=== PATIENT | male | born 1950 ===

== ENCOUNTER 2016-08-15 12:39 | Observation (INO) ==
[2016-08-15] MEDS ORDERED: CLINDAMYCIN INJ 600 MG in PREMIX 1 EACH IV STA (13:28)
[2016-08-15] MEDS ORDERED: SODIUM CHLORIDE 0.9% 1,000 ML IV STA (13:28)
--- NOTE | 2016-08-15 13:34 | Emergency Department Note ---
John Pena Gwan, am scribing for, and in the presence of, Romel Jean MD 13 :19. Ted Pena Charles R, MD, personally performed the services described in this documentation, ascribed by Yovana Lopez in my presence, and it is both accurate and complete [id number] . Arrival - Arrival Chief Complaint: Non-Specific Stated Complaint: TRANSFER [facility] HYPERGLYCEMIA ED Nursing Triage Note: PT TRANSFERRED FROM [facility] FOR EVALUATION OF ELEVATED GLUCOSE WITH SERUM KETONES. PT PRESENTED INITALLY TO DENTAL CLINIC- GIVEN ROCEPHIN AND SENT TO ER FOR ELEVATED GLUCOSE AND HTN. PT HAD ALLERGIC REACTION TO ROCEPHIN AND THEN GIVEN BENADRYL. Mode of Arrival: Stretcher Limitations: No Limitations Source: Patient, Old Records Reviewed, RN Notes Reviewed Time Seen by Provider: 08/15/16 13:06 - History of Present Illness HPI Narrative: Pt is 66 y/o male who presents to the ED for further evaluation of elevated BS with serum ketones with an onset today. Patient stated that he was at dentist office at [facility] for an abscess on lower tooth and upon evaluation, pt ws instructed to report to ED due to elevated BS and HTN. Nurses note that pt was given Rocephin and received an allergic reaction. 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 Patient confirmed that he tooth began to bother him this past weekend and that he ran out of his DM medication 04/2016. No other problems/complaints reported in ED. Onset (ago): day(s) Consistency: constant Severity: severe Allergies/Adverse Reactions: Allergies Allergy/AdvReac Type Severity Reaction Status Date / Time ceftriaxone [From Rocephin] Allergy RASH Verified 08/15/16 12:56 ibuprofen [From Motrin] Allergy RASH Verified 08/15/16 12:56 Review of System - Review of System 12 point system: reviewed and no additional remarkable complaints except as stated - Review of System Constitutional: Present: as per HPI, other (elevated blood sugar) Additional ROS comments: Bottom tooth pain with abscess. Medical,Surgical,& Family Hx - Medical History Cardio: History of: Hypertension Endocrine: History of: Diabetes Mellitus (NIDDM), Thyroid Disorder Other: History of: MRSA - Social History Smoking Status: Current every day smoker Frequency of Alcohol Use: None Type of Drug Use: None Exam Vital Signs: Vital Signs Temperature 97.4 F L 01/03/17 12:39 Pulse Rate 61 08/15/16 12:39 Respiratory Rate 16 08/15/16 12:39 Blood Pressure 189/91 08/15/16 12:39 O2 Sat by Pulse Oximetry 99 08/15/16 12:39 - General General appearance: alert, in no apparent distress - Head Head exam: Present: atraumatic, normocephalic - Eye Eye exam: Present: normal appearance, PERRL, EOMI - ENT ENT exam: Present: normal exam, normal oropharynx, mucous membranes moist, TM's normal bilaterally, normal external ear exam - Expanded ENT Exam Teeth exam: Present: dental caries (Several dental caries), other (Abscess front lower tooth; excessive tooth decay) - Neck Neck exam: Present: full ROM, trachea midline. Absent: tenderness, meningismus , lymphadenopathy, thyromegaly - Chest Chest inspection: Present: symmetric chest wall rise. Absent: tenderness - Respiratory Respiratory exam: Present: normal lung sounds bilaterally. Absent: respiratory distress - Cardiovascular Cardiovascular exam: Present: regular rate, normal rhythm, normal heart sounds. Absent: murmur, rubs, gallop - Abdominal Exam Abdominal exam: Present: soft, normal bowel sounds. Absent: distention, tenderness, guarding, rebound - Extremities Exam Extremities exam: Present: full ROM. Absent: tenderness, pedal edema, calf tenderness - Back Exam Back exam: Present: full ROM. Absent: tenderness - Neurological Exam Neurological exam: Present: alert, oriented X3, CN II-XII intact. Absent: motor sensory deficit - Psychiatric Psychiatric exam: Present: normal affect, normal mood - Skin Skin exam: Present: warm, dry, intact, normal color Course - Consultations Consultation #1: Hospitalist will admit patient Time: 13:34 Results - Labs Lab Results: I have reviewed the patients labs Labs: I reviewed all previous labs from [facility] Critical Care Time Critical Care Time: Yes Total Critical Care Time: 60 Disposition Clinical Impression: Dental abscess, Hyperglycemia due to type 2 diabetes mellitus, Medical non- compliance Case discussed with: patient Disposition: Still a Patient Condition: Guarded Time of Disposition: 13:35
[2016-08-15] MEDS ORDERED: MORPHINE 2 MG/1 ML SYRINGE IV PRN (13:37)
[2016-08-15] MEDS ORDERED: DEXTROSE 50% 25 GM/50 ML VIAL IV PRN (13:37)
[2016-08-15] MEDS ORDERED: ACETAMINOPHEN 325 MG TABLET PO PRN (13:37)
[2016-08-15] MEDS ORDERED: GLUCAGON 1 MG VIAL IM PRN (13:37)
[2016-08-15 13:57] LABS: Basophils % 0.2 % (0.0-0.8); Eosinophils # 0.1 10*3/uL (0.0-0.87); Hematocrit 42.6 VOL% (42.0-52.0); Hemoglobin 14.5 GM/DL (14.0-18.0); Immature Granulocytes % 0.2 %; Immature Granulocytes Absolute 0.02 #; Lymphocytes # 2.1 10*3/uL (1.4-4.0); Lymphocytes % 24.8 % (21.2-54.2); Mean Corpuscular Hemoglobin 32 PG (27-34); Mean Corpuscular Volume 93.4 FL (87-102); Mean Platelet Volume 9.8 FL (9.6-12.0); Monocytes # 0.5 10*3/uL (0.11-0.8); Monocytes % 5.7 % (1.7-12.7); Neutrophils # 5.8 10*3/uL (1.4-7.4); Neutrophils % 68.1 % (38.7-73.9); Platelet Count 192 10*3/uL (130-400); Red Blood Count 4.56 10*6/uL (3.8-5.5); Red Cell Distribution Width 12.8 % (9.3-17.3); White Blood Count 8.6 10*3/uL (4.5-13.71)
[2016-08-15 13:58] LABS: Apearance,Urine CLEAR (Clear); Bilirubin,Urine Negative (Negative); Blood, Urine Negative (Negative); Glucose,Urine (UA) >=500 mg/dL (Negative); Ketones,Urine 80 mg/dL (Negative); Nitrite,Urine Negative (Negative); Protein,Urine Negative; RBC,Urine <1 /HPF (0-4); Urine Color Straw (Yellow); Urine Specific Gravity 1.025 (1.001-1.035); Urine Urobilinogen < 2.0 EU/DL (0.2-1.0); WBC,Urine <1 /HPF (0-6)
--- NOTE | 2016-08-15 13:58 | EKG Report ---
Stationary ECG Study [facility] ER Test Date: 08/15/2016 1:56:40 PM Pat Name: JESSENIA HARTMAN Department: Room: 440 Gender: M Physical Integration Practitioner: CHAD : 1950 Requested by: Romel May Order Number: [id number] Reading MD: CASSIDY TA Intervals [place] Rate: 51 P: 48 AK: 194 QRS: -22 QRSD: 129 T: -40 QT: 459 QTc: 435 Interpretive Statements SINUS BRADYCARDIA BORDERLINE LEFT AXIS DEVIATION MODERATE INTRAVENTRICULAR CONDUCTION DELAY NONSPECIFIC T-WAVE ABNORMALITY Electronically Signed On 08-15-16 17:31:37 FIELD MARKETING ASSOCIATE by CASSIDY TA [email or web address]
[2016-08-15] MEDS ORDERED: ENOXAPARIN 40 MG/0.4 ML SYRINGE SUBCUT SCH (14:00)
[2016-08-15] MEDS ORDERED: SODIUM CHLORIDE 0.9% 1,000 ML IV SCH (14:00)
--- NOTE | 2016-08-15 14:02 | XRay Report ---
Referring Physician: Romel Jean Exam: XR chest 1V portable Date: August 15, 2016 at 1:31 PM Reason: Hyperglycemia Comparison: None Findings: The cardiac silhouette is normal in size. There is minimal atelectasis at the left lung base and possibly at the right lung base. No pneumothorax or pleural fluid is identified. No pneumothorax or pleural fluid is identified. No acute osseous process is seen. Impression: There is minimal atelectasis at the left lung base and possibly at the right lung base. PROCEDURE INTERPRETED AT [facility] DEPARTMENT OF RADIOLOGY Final Report Signed by: Dr. Angie Gallo
[2016-08-15] MEDS ORDERED: CLINDAMYCIN 600 MG/4 ML VIAL ONE (14:12)
[2016-08-15 14:37] LABS: Albumin 3.8 G/DL (3.4-5.0); Bilirubin,Total 0.6 MG/DL (0.2-1.0); Calcium 8.7 MG/DL (8.5-10.1); Potassium 4.4 MMOL/L (3.5-5.1); Total Protein 7.2 G/DL (6.4-8.3)
[2016-08-15 14:38] LABS: Troponin I Only 0.032 NG/ML (0.00-0.045)
--- NOTE | 2016-08-15 15:14 | Hospitalist History & Physical ---
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 Duarte Current Visit: Yes History of Present Illness Chief complaint: infected tooth, hyperglycemia, hypertension History of present illness: Mr. Roth is a 66 year old male who was transferred from [facility] for hyperglycemia. He states he went to [facility] to see about his infected tooth. His right lower molar is infected and painful. He was found there to be hyperglycemic and hypertensive. He states he has not taken his HTN or DM meds since April. He denies other medical history. Denies surgical history. Does smoke about 4 cigarettes a day. Stopped drinking three years ago. Denies drug use. t present, pt denies chest pain, shortness of breath, fever, chills, headache, abdominal pain, n/v/d, dysuria or edema. He did tell me that he had some vomiting and diarrhea a few days ago but it resolved. No pain or complaint at present. Home Medications Medication Instructions Recorded Confirmed Type Aspirin [Ecotrin] 81 mg PO QAM 08/15/16 08/15/16 History Insulin Detemir [Levemir FlexPen] See Protocol SUBCUT DAILY 08/15/16 08/15/16 History Levothyroxine Tab [Synthroid Tab] 200 mcg PO QAM 08/15/16 08/15/16 History Allergies Allergy/AdvReac Type Severity Reaction Status Date / Time ceftriaxone [From Rocephin] Allergy RASH Verified 08/15/16 12:56 ibuprofen [From Motrin] Allergy RASH Verified 08/15/16 12:56 Medical,Surgical,& Family Hx - Medical History Cardio: History of: Hypertension Endocrine: History of: Diabetes Mellitus (NIDDM), Thyroid Disorder Other: History of: MRSA - Social History Smoking Status: Current every day smoker Frequency of Alcohol Use: None Type of Drug Use: None 12 point system: reviewed and no additional remarkable complaints except as stated Exam - Constitutional General appearance: no acute distress - Head Head exam: Present: normal inspection, normocephalic - Eye Eye exam: Present: EOMI. Absent: scleral icterus Pupils: Present: NATALIYA, normal accommodation - ENT ENT exam: Present: normal exam, other (infected lower right molar) - Neck Neck exam: Present: normal inspection. Absent: lymphadenopathy - Respiratory Respiratory exam: Present: clear to auscultation bilaterally. Absent: wheezes - Cardiovascular Cardiovascular exam: Present: regular rate and rhythm. Absent: tachycardia - GI/Abdominal GI/Abdominal exam: Present: normal bowel sounds, soft. Absent: tenderness - Extremities Exam Extremities exam: Present: normal inspection, full ROM. Absent: edema - Back Exam Back exam: Present: normal inspection. Absent: muscle spasm - Neurological Exam Neurological exam: Present: alert, oriented X3 - Psychiatric Psychiatric exam: Present: normal affect, normal mood - Skin Skin exam: Present: normal color, warm, dry Results - Labs CBC & BMP: 08/15/16 13:42 08/15/16 13:42 Lab Results: I have reviewed the past 24 hour labs
[2016-08-15] MEDS ORDERED: hydrALAZINE 20 MG/1 ML VIAL IV ONE (15:49)
[2016-08-15] MEDS: LISINOPRIL/HCTZ 10-12.5 MG TABLET PO SCH (16:05)
[2016-08-15] MEDS: CLINDAMYCIN 300 MG CAPSULE PO SCH (18:35)
[2016-08-15] MEDS: INSULIN REGULAR 100 UNIT/ML SUBCUT SCH (18:59)
[2016-08-15] MEDS ORDERED: INSULIN GLARGINE 100 UNIT/ML SUBCUT SCH (21:00)
[2016-08-16] MEDS: CLINDAMYCIN 300 MG CAPSULE PO SCH ×2 (00:05→06:17)
[2016-08-16] MEDS: INSULIN REGULAR 100 UNIT/ML SUBCUT SCH ×2 (00:07→06:17)
[2016-08-16 05:23] LABS: Basophils % 0.2 % (0.0-0.8); Eosinophils # 0.2 10*3/uL (0.0-0.87); Eosinophils % 2.5 % (0.00-10.9); Hematocrit 38.4 VOL% (42.0-52.0); Hemoglobin 12.9 GM/DL (14.0-18.0); Immature Granulocytes % 0.2 %; Immature Granulocytes Absolute 0.02 #; Lymphocytes % 34.4 % (21.2-54.2); Mean Corpuscular HGB Conc 33.6 GM/DL (32-36); Mean Corpuscular Hemoglobin 31 PG (27-34); Mean Corpuscular Volume 92.3 FL (87-102); Monocytes # 0.5 10*3/uL (0.11-0.8); Monocytes % 5.7 % (1.7-12.7); Platelet Count 198 10*3/uL (130-400); Red Blood Count 4.16 10*6/uL (3.8-5.5); Red Cell Distribution Width 12.8 % (9.3-17.3); White Blood Count 8.7 10*3/uL (4.5-13.71)
[2016-08-16 05:56] LABS: Calcium 8.1 MG/DL (8.5-10.1); Osmolality,Calculated 292.7 MOS/KG (273-304); Potassium 3.2 MMOL/L (3.5-5.1)
[2016-08-16] MEDS ORDERED: LEVOTHYROXINE 200 MCG TABLET PO SCH (09:00)
[2016-08-16] MEDS ORDERED: ASPIRIN EC 81 MG TABLET PO SCH (09:00)
[2016-08-16] MEDS: LISINOPRIL/HCTZ 10-12.5 MG TABLET PO SCH (09:14)
--- NOTE | 2016-08-16 09:51 | Discharge Summary ---
<Ericka Urena N - Last Filed: 08/16/16 09:51> Hospital Course - Hospital Course Hospital Course: Mr. Roth is a 66 year old male who was admitted on 08/15/16 for hypertension, dental abscess, medical non-compliance, and hyperglycemia. He was started on SSI while inpt and diabetic educators have talked with him this morning. He was started on Lisinopril/HCTZ for his BP after receiving PRN Apresoline in the ER, his BP has been well controlled through the night and this morning. We have discussed medication compliance with him. We have started him on PO Clindymycin for his dental abscess and he will be discharged home on this. He will follow up with [facility]. His labs and vitals are WNL this morning. He denies any chest pain , SOB, or vomiting, stating he had a good night. He is agreeable to discharge and follow up. He can be discharged to home today, please see discharge medication reconciliation for accurate list. Diagnosis - Discharge Diagnosis (1) Hypertension Status: Acute (2) Dental abscess Status: Acute (3) Medical non-compliance Status: Acute (4) Hyperglycemia due to type 2 diabetes mellitus Status: Acute Specialty Discharge - Follow Up or Referrals - Discharge Medications No Action Aspirin [Ecotrin] 81 mg PO QAM Insulin Detemir [Levemir FlexPen] See Protocol SUBCUT DAILY Levothyroxine Tab [Synthroid Tab] 200 mcg PO QAM Discharge Plan - Discharge Data Disposition: Disch To Home/Self Care - Discharge Medications New Clindamycin Cap [Cleocin Cap] 300 mg PO Q6HR #20 capsule Insulin Detemir [Levemir] 20 unit SUBCUT BEDTIME #10 ml Insulin Aspart [NovoLOG] 10 unit SUBCUT TID W/MEALS #10 ml Lisinopril/Hctz 10-12.5 [Prinzide 10-12.5] 1 tablet PO DAILY #30 tablet Continue Aspirin [Ecotrin] 81 mg PO QAM Levothyroxine Tab [Synthroid Tab] 200 mcg PO QAM Discontinued Insulin Detemir [Levemir FlexPen] See Protocol SUBCUT DAILY - Follow Up or Referral - Forms/Instructions Forms: Work/School Release Exam - Constitutional Vitals: Period Temp Pulse Resp BP Sys/[place] Pulse Ox Last 24 Hr 96.3 F-97.5 F 58-67 18-20 131-195/77-106 94-98 Discharge Results Labs on day of discharge: Labs from last 24 hours 08/16/16 08/16/16 08/16/16 06:01 04:35 04:35 WBC 8.7 RBC 4.16 Hgb 12.9 L Hct 38.4 L MCV 92.3 MCH 31 MCHC 33.6 RDW 12.8 Plt Count 198 MPV 10.0 Neut % (Auto) 57.0 Lymph % (Auto) 34.4 Collin % (Auto) 5.7 Eos % (Auto) 2.5 Baso % (Auto) 0.2 Neut # (Auto) 5.0 Lymph # (Auto) 3.0 Collin # (Auto) 0.5 Eos # (Auto) 0.2 Baso # (Auto) 0.0 Immature Gran % 0.2 Nucleated RBC % 0.0 Immature Gran # 0.02 Nucleated RBCs # 0.00 Sodium 145 Potassium 3.2 L Chloride 109 H Carbon Dioxide 23 Anion Gap 16.2 H BUN 15 Creatinine 0.80 GFR Calculation 105 BUN/Creatinine Ratio 18.00 Glucose 178 H POC Glucose 168 H Hemoglobin A1c Calculated Osmolality 292.7 Calcium 8.1 L Magnesium Total Bilirubin AST ALT Alkaline Phosphatase Total Creatine Kinase CK-MB (CK-2) Troponin I Total Protein Albumin Globulin Albumin/Globulin Ratio b-Hydroxybutyric mmol/L Urine Color Urine Appearance Urine pH Ur Specific [place] Urine Protein Urine Glucose (UA) Urine Ketones Urine Blood Urine Nitrate Urine Bilirubin Urine Urobilinogen Urine Leukocytes Urine RBC Urine WBC Ur Culture Indicated? 08/15/16 08/15/16 08/15/16 23:58 21:24 18:44 WBC RBC Hgb Hct MCV MCH MCHC RDW Plt Count MPV Neut % (Auto) Lymph % (Auto) Collin % (Auto) Eos % (Auto) Baso % (Auto) Neut # (Auto) Lymph # (Auto) Collin # (Auto) Eos # (Auto) Baso # (Auto) Immature Gran % Nucleated RBC % Immature Gran # Nucleated RBCs # Sodium Potassium Chloride Carbon Dioxide Anion Gap BUN Creatinine GFR Calculation BUN/Creatinine Ratio Glucose POC Glucose 255 H 306 H 345 H Hemoglobin A1c Calculated Osmolality Calcium Magnesium Total Bilirubin AST ALT Alkaline Phosphatase Total Creatine Kinase CK-MB (CK-2) Troponin I Total Protein Albumin Globulin Albumin/Globulin Ratio b-Hydroxybutyric mmol/L Urine Color Urine Appearance Urine pH Ur Specific [place] Urine Protein Urine Glucose (UA) Urine Ketones Urine Blood Urine Nitrate Urine Bilirubin Urine Urobilinogen Urine Leukocytes Urine RBC Urine WBC Ur Culture Indicated? 08/15/16 08/15/16 08/15/16 15:58 13:42 13:42 WBC RBC Hgb Hct MCV MCH MCHC RDW Plt Count MPV Neut % (Auto) Lymph % (Auto) Collin % (Auto) Eos % (Auto) Baso % (Auto) Neut # (Auto) Lymph # (Auto) Collin # (Auto) Eos # (Auto) Baso # (Auto) Immature Gran % Nucleated RBC % Immature Gran # Nucleated RBCs # Sodium Potassium Chloride Carbon Dioxide Anion Gap BUN Creatinine GFR Calculation BUN/Creatinine Ratio Glucose POC Glucose 342 H Hemoglobin A1c Calculated Osmolality Calcium Magnesium Total Bilirubin AST ALT Alkaline Phosphatase Total Creatine Kinase 223 CK-MB (CK-2) 2.4 Troponin I 0.032 Total Protein Albumin Globulin Albumin/Globulin Ratio b-Hydroxybutyric mmol/L 3.8 H Urine Color Urine Appearance Urine pH Ur Specific [place] Urine Protein Urine Glucose (UA) Urine Ketones Urine Blood Urine Nitrate Urine Bilirubin Urine Urobilinogen Urine Leukocytes Urine RBC Urine WBC Ur Culture Indicated? 08/15/16 08/15/16 08/15/16 13:42 13:42 13:42 WBC RBC Hgb Hct MCV MCH MCHC RDW Plt Count MPV Neut % (Auto) Lymph % (Auto) Collin % (Auto) Eos % (Auto) Baso % (Auto) Neut # (Auto) Lymph # (Auto) Collin # (Auto) Eos # (Auto) Baso # (Auto) Immature Gran % Nucleated RBC % Immature Gran # Nucleated RBCs # Sodium 143 Potassium 4.4 Chloride 106 Carbon Dioxide 23 Anion Gap 18.4 H BUN 19 H Creatinine 1.00 GFR Calculation 90 BUN/Creatinine Ratio 19.00 Glucose 417 H POC Glucose Hemoglobin A1c 11.3 H Calculated Osmolality 304.0 Calcium 8.7 Magnesium 2.0 Total Bilirubin 0.60 AST 16 ALT 28 Alkaline Phosphatase 133 H Total Creatine Kinase CK-MB (CK-2) Troponin I Total Protein 7.2 Albumin 3.8 Globulin 3.4 Albumin/Globulin Ratio 1.1 b-Hydroxybutyric mmol/L Urine Color Straw Urine Appearance Clear Urine pH 5.0 Ur Specific [place] 1.025 Urine Protein Negative Urine Glucose (UA) >=500 Urine Ketones 80 Urine Blood Negative Urine Nitrate Negative Urine Bilirubin Negative Urine Urobilinogen < 2.0 H Urine Leukocytes Negative Urine RBC <1 Urine WBC <1 Ur Culture Indicated? Not indicated 08/15/16 13:42 WBC 8.6 RBC 4.56 Hgb 14.5 Hct 42.6 MCV 93.4 MCH 32 MCHC 34.0 RDW 12.8 Plt Count 192 MPV 9.8 Neut % (Auto) 68.1 Lymph % (Auto) 24.8 Collin % (Auto) 5.7 Eos % (Auto) 1.0 Baso % (Auto) 0.2 Neut # (Auto) 5.8 Lymph # (Auto) 2.1 Collin # (Auto) 0.5 Eos # (Auto) 0.1 Baso # (Auto) 0.0 Immature Gran % 0.2 Nucleated RBC % 0.0 Immature Gran # 0.02 Nucleated RBCs # 0.00 Sodium Potassium Chloride Carbon Dioxide Anion Gap BUN Creatinine GFR Calculation BUN/Creatinine Ratio Glucose POC Glucose Hemoglobin A1c Calculated Osmolality Calcium Magnesium Total Bilirubin AST ALT Alkaline Phosphatase Total Creatine Kinase CK-MB (CK-2) Troponin I Total Protein Albumin Globulin Albumin/Globulin Ratio b-Hydroxybutyric mmol/L Urine Color Urine Appearance Urine pH Ur Specific [place] Urine Protein Urine Glucose (UA) Urine Ketones Urine Blood Urine Nitrate Urine Bilirubin Urine Urobilinogen Urine Leukocytes Urine RBC Urine WBC Ur Culture Indicated? DS: Provider Date of admission: 08/15/16 13:37 Primary care physician: Gloria Friedman MD Attending physician on admission: Sara Duarte MD Consults: 08/15/16 14:04 Consult to Pharmacy [CONS] Routine Reason for Pharmacy Consult: Adjust Meds Renal Funct Discharging clinician: RONAN Mcfarlane <Sara Duarte - Last Filed: 08/16/16 10:51> Diagnosis - Discharge Diagnosis (1) Hyperglycemia due to type 2 diabetes mellitus Status: Acute (2) Medical non-compliance Status: Acute (3) Hypertension Status: Acute (4) Dental abscess Status: Acute Discharge Plan - Discharge Data Condition at Discharge: Stable Discharge Diet: diabetic diet, low salt diet Activity: resume usual activities as tolerated Hygiene: no restrictions Contact your physician if you experience:: fever over 101, Bleeding Exam - Constitutional General appearance: no acute distress - Head Head exam: Present: normocephalic, atraumatic - Eye Eye exam: Present: EOMI Pupils: Present: NATALIYA - ENT ENT exam: Present: normal exam, normal external ear exam - Respiratory Respiratory exam: Present: clear to auscultation bilaterally - Cardiovascular Cardiovascular exam: Present: regular rate and rhythm - GI/Abdominal GI/Abdominal exam: Present: normal bowel sounds, soft - Extremities Exam Extremities exam: Present: full ROM - Neurological Exam Neurological exam: Present: alert, oriented X3, CN II-XII intact - Psychiatric Psychiatric exam: Present: normal affect, normal mood - Skin Skin exam: Present: warm, intact
[2016-08-16 13:04] VITALS: BP 152/81
== END 2016-08-16 12:30 | disposition home or self-care (01) ==
LOC: EDBD → EDUNIT# → N.ED 12:39 → N.EDINP 13:37 → INTOOBSV 13:37 → N.4E 13:55
PROVIDERS: ADMIT Family Medicine; ATTEND Family Medicine

== ENCOUNTER 2020-04-28 21:29 | Inpatient (IN) ==
[2020-04-28] MEDS ORDERED: MORPHINE 4 MG/1 ML VIAL IV PRN (23:29)
[2020-04-28] MEDS ORDERED: GLUCAGON 1 MG VIAL IM PRN (23:29)
[2020-04-28] MEDS ORDERED: diphenhydrAMINE CAP 25 MG CAPSULE PO PRN (23:29)
[2020-04-28] MEDS ORDERED: ZALEPLON 5 MG CAPSULE PO PRN (23:29)
[2020-04-28] MEDS ORDERED: hydrALAZINE 20 MG/1 ML VIAL IV PRN (23:29)
[2020-04-28] MEDS ORDERED: PROMETHAZINE 25 MG TABLET PO PRN (23:29)
[2020-04-28] MEDS ORDERED: NICOTINE 21 MG/24 HR PATCH TRANSDERM PRN (23:29)
[2020-04-28] MEDS ORDERED: SIMETHICONE CHEW 125 MG TABLET PO PRN (23:29)
[2020-04-28] MEDS ORDERED: ACETAMINOPHEN 325 MG TABLET PO PRN (23:29)
[2020-04-28] MEDS ORDERED: ONDANSETRON 4 MG/2 ML VIAL IV PRN (23:29)
[2020-04-28] MEDS ORDERED: DEXTROSE 50% 25 GM/50 ML VIAL IV PRN (23:29)
[2020-04-28] MEDS ORDERED: guaiFENesin/DM ER 600-30 MG TABLET PO PRN (23:29)
[2020-04-28 23:55] LABS: Eosinophils # 0.1 10*3/uL (0.0-0.87); Eosinophils % 1.5 % (0.00-10.9); Immature Granulocytes % 0.7 %; Immature Granulocytes Absolute 0.04 #; Lymphocytes % 37.2 % (21.2-54.2); Mean Corpuscular HGB Conc 35.4 GM/DL (32-36); Mean Corpuscular Volume 116.1 FL (87-102); Mean Platelet Volume 11.5 FL (9.6-12.0); Monocytes % 1.3 % (1.7-12.7); Neutrophils % 59.3 % (38.7-73.9); Red Blood Count 1.68 MC/CUMM (3.8-5.5); Red Cell Distribution Width 14.2 % (9.3-17.3); White Blood Count 5.5 T/CUMM (4-12)
[2020-04-28 23:57] LABS: Hematocrit 19.5 VOL% (42.0-52.0); Hemoglobin 6.9 GM/DL (14.0-18.0); Platelet Count 86 T/CUMM (130-400)
[2020-04-29] MEDS: SODIUM CHLORIDE 0.9% 1,000 ML IV SCH ×3 (00:03→22:45)
[2020-04-29] MEDS: INSULIN GLARGINE 100 UNIT/ML SUBCUT SCH ×2 (00:03→21:11)
[2020-04-29 00:12] LABS: Albumin 3.6 G/DL (3.4-5.0); Osmolality,Calculated 301.1 MOS/KG (273-304); Total Protein 6.3 G/DL (6.4-8.3)
[2020-04-29] MEDS ORDERED: SODIUM CHLORIDE 0.9% 1,000 ML IV PRN ×2 (01:40→06:47)
[2020-04-29 01:45] LABS: Band Neutrophils 2 % (0-10); Eosinophils 2 % (0-10); Lymphocytes 35 % (20-55); Platelet Estimate Decreased; Segmented Neutrophils 60 % (50-85)
[2020-04-29 01:46] LABS: Anisocytosis 2+; Hypersegmented Neutrophil 2+; Hypochromasia 1+; Macrocytosis 2+; Ovalocytes 1+; Target Cells Few; Total Cells Counted 100
[2020-04-29 02:44] LABS: Basophils % 0.2 % (0.0-0.8); Eosinophils # 0.1 10*3/uL (0.0-0.87); Eosinophils % 1.8 % (0.00-10.9); Hemoglobin 6.5 GM/DL (14.0-18.0); Immature Granulocytes % 0.6 %; Immature Granulocytes Absolute 0.03 #; Lymphocytes % 40.5 % (21.2-54.2); Mean Corpuscular HGB Conc 36.1 GM/DL (32-36); Mean Corpuscular Volume 113.9 FL (87-102); Mean Platelet Volume 11.9 FL (9.6-12.0); Monocytes % 1.2 % (1.7-12.7); Neutrophils % 55.7 % (38.7-73.9); Platelet Count 84 T/CUMM (130-400); Red Blood Count 1.58 MC/CUMM (3.8-5.5); White Blood Count 4.9 T/CUMM (4-12)
[2020-04-29] MEDS: INSULIN LISPRO 100 UNIT/ML SUBCUT SCH ×6 (02:53→21:11)
[2020-04-29 04:07] LABS: Anisocytosis 2+; Band Neutrophils 4 % (0-10); Eosinophils 2 % (0-10); Hypersegmented Neutrophil 1+; Hypochromasia 1+; Lymphocytes 43 % (20-55); Macrocytosis 2+; Nucleated Red Blood Cells 15 (0-5); Ovalocytes 1+; Platelet Estimate Decreased; Segmented Neutrophils 49 % (50-85); Target Cells 1+; Total Cells Counted 100
[2020-04-29 05:22] LABS: Sedimentation Rate-Westergren 35 MM/HR (0-20)
[2020-04-29 06:21] LABS: Folate 16.3 NG/ML (5.4-24.0); Vitamin B12 71 PG/ML (211-911)
[2020-04-29] MEDS ORDERED: FUROSEMIDE 40 MG/4 ML VIAL IV SCH (07:00)
[2020-04-29] MEDS ORDERED: HEPARIN 5,000 UNIT/1 ML VIAL SUBCUT SCH (08:00)
[2020-04-29] MEDS ORDERED: CYANOCOBALAMIN 100 MCG TABLET PO SCH (09:00)
[2020-04-29] MEDS: FOLIC ACID 1 MG TABLET PO SCH ×2 (09:00→21:11)
[2020-04-29] MEDS: PANTOPRAZOLE 40 MG TABLET PO SCH (09:00)
[2020-04-29] MEDS: DOCUSATE SODIUM 100 MG CAPSULE PO SCH ×2 (09:00→21:11)
[2020-04-29] MEDS ORDERED: MAGNESIUM CITRATE 300 ML BOTTLE PO ONE ×2 (09:16→18:00)
[2020-04-29 09:18] LABS: Bilirubin,Urine Negative (Negative); Blood, Urine Small mg/dL (Negative); Glucose,Urine (UA) >=500 mg/dL (Negative); Hyaline Casts,Urine 1 /LPF (0-3); Ketones,Urine 20 mg/dL (Negative); Mucus,Urine Occasional /LPF (Occasional); Nitrite,Urine Negative (Negative); Protein,Urine 30 MG/DL; RBC,Urine <1 /HPF (0-4); Squamous Epithelial Cell,Urine Occasional /HPF (0-10); Urine Appearance CLEAR (Clear); Urine Color Yellow (Yellow); Urine Specific Gravity 1.024 (1.001-1.035); WBC,Urine 1 /HPF (0-6)
[2020-04-29] MEDS ORDERED: CYANOCOBALAMIN 1000 MCG/1 ML VIAL SUBCUT SCH (09:30)
[2020-04-29] MEDS ORDERED: FUROSEMIDE 40 MG/4 ML VIAL IV ONE (13:00)
[2020-04-29 15:06] LABS: Hematocrit 28.2 VOL% (42.0-52.0); Hemoglobin 9.8 GM/DL (14.0-18.0)
[2020-04-30] MEDS: SODIUM CHLORIDE 0.9% 1,000 ML IV SCH ×3 (00:31→14:50)
[2020-04-30] MEDS: INSULIN LISPRO 100 UNIT/ML SUBCUT SCH ×6 (01:52→21:40)
[2020-04-30 07:25] LABS: Eosinophils # 0.2 10*3/uL (0.0-0.87); Eosinophils % 3.3 % (0.00-10.9); Hematocrit 26.6 VOL% (42.0-52.0); Hemoglobin 9.5 GM/DL (14.0-18.0); Immature Granulocytes % 0.7 %; Immature Granulocytes Absolute 0.03 #; Lymphocytes # 2.1 10*3/uL (1.4-4.0); Lymphocytes % 46.8 % (21.2-54.2); Mean Corpuscular HGB Conc 35.7 GM/DL (32-36); Mean Corpuscular Volume 104.3 FL (87-102); Mean Platelet Volume 11.3 FL (9.6-12.0); Neutrophils % 47.2 % (38.7-73.9); Platelet Count 55 T/CUMM (130-400); Red Blood Count 2.55 MC/CUMM (3.8-5.5); Red Cell Distribution Width 18.7 % (9.3-17.3); White Blood Count 4.5 T/CUMM (4-12)
[2020-04-30 07:39] LABS: Eosinophils 3 % (0-10); Lymphocytes 47 % (20-55); Platelet Estimate Decreased; Segmented Neutrophils 48 % (50-85); Total Cells Counted 100
[2020-04-30 07:40] LABS: Hypochromasia Slight; Macrocytosis Slight
[2020-04-30 07:47] LABS: Albumin 3.2 G/DL (3.4-5.0); Bilirubin,Total 0.9 MG/DL (0.2-1.0); Calcium 8.6 MG/DL (8.5-10.1); Total Protein 6.1 G/DL (6.4-8.3)
[2020-04-30 07:57] LABS: Risk Ratio 3.35; Thyroid Stimulating Hormone 1.23 uIU/ml (0.358-3.74); VLDL CHOLESTEROL 17.2 MG/DL
[2020-04-30] MEDS: FOLIC ACID 1 MG TABLET PO SCH ×2 (09:12→21:05)
[2020-04-30] MEDS: PANTOPRAZOLE 40 MG TABLET PO SCH (09:12)
[2020-04-30] MEDS: DOCUSATE SODIUM 100 MG CAPSULE PO SCH ×2 (09:12→21:05)
[2020-04-30 11:10] LABS: Hemoglobin A1 (Alkaline) 97.6 % (96.5-98.5); Hemoglobin A2 (Alkaline) 2.4 % (1.5-3.5)
[2020-04-30] MEDS: INSULIN GLARGINE 100 UNIT/ML SUBCUT SCH (21:05)
[2020-05-01] MEDS: SODIUM CHLORIDE 0.9% 1,000 ML IV SCH ×2 (02:04→15:15)
[2020-05-01] MEDS: INSULIN LISPRO 100 UNIT/ML SUBCUT SCH ×4 (02:04→14:39)
[2020-05-01 07:19] LABS: Basophils % 0.2 % (0.0-0.8); Eosinophils # 0.2 10*3/uL (0.0-0.87); Eosinophils % 3.2 % (0.00-10.9); Hematocrit 23.4 VOL% (42.0-52.0); Hemoglobin 8.3 GM/DL (14.0-18.0); Immature Granulocytes Absolute 0.05 #; Lymphocytes # 2.5 10*3/uL (1.4-4.0); Lymphocytes % 46.6 % (21.2-54.2); Mean Corpuscular HGB Conc 35.5 GM/DL (32-36); Mean Corpuscular Volume 104.9 FL (87-102); Mean Platelet Volume 11.7 FL (9.6-12.0); Monocytes % 6.7 % (1.7-12.7); Neutrophils % 42.3 % (38.7-73.9); Red Blood Count 2.23 MC/CUMM (3.8-5.5); Red Cell Distribution Width 18.8 % (9.3-17.3); White Blood Count 5.3 T/CUMM (4-12)
[2020-05-01 07:21] LABS: Platelet Count 40 T/CUMM (130-400)
[2020-05-01 07:42] LABS: Lymphocytes 50 % (20-55); Segmented Neutrophils 45 % (50-85); Total Cells Counted 100
[2020-05-01 07:43] LABS: Hypochromasia 2+; Macrocytosis Slight; Ovalocytes Slight; Platelet Estimate Decreased
[2020-05-01] MEDS: DOCUSATE SODIUM 100 MG CAPSULE PO SCH (09:01)
[2020-05-01] MEDS: FOLIC ACID 1 MG TABLET PO SCH (09:01)
[2020-05-01] MEDS: PANTOPRAZOLE 40 MG TABLET PO SCH (09:01)
[2020-05-01] MEDS ORDERED: IRON SUCROSE 300 MG in SODIUM CHLORIDE 0.9% 100 ML IV ONE (15:00)
[2020-05-01 16:39] VITALS: BP 101/58
[2020-05-03 15:00] LABS: IgA Serum (MAYO) 225 mg/dL (61 - 356)
[2020-05-11 10:23] LABS: Tissue Transglutaminase IgA Ab < 1.2 U/mL
== END 2020-05-01 17:33 | disposition home or self-care (01) | DRG 812 ==
LOC: N.TELEN 22:51
PROVIDERS: ADMIT Internal Medicine; ATTEND Internal Medicine